=== PATIENT | male | born 1955 | race Caucasian/White ===

== ENCOUNTER → 2018-03-19 14:32 | Outpatient (CLI) | payer MEDICARE, SELFPAY ==
[2018-03-19 14:37] LABS: Microscopic, Urine URINE MICROSCOPIC (MICROSCOPIC)
[2018-03-19 15:06] LABS: Appearance,Urine CLEAR (Clear); Bilirubin,Urine Negative (Negative); Blood, Urine TRACE-L (Negative); Color,Urine YELLOW (Yellow); Glucose,Urine (UA) Negative (Negative); Ketones,Urine Negative (Negative); Leukocyte Esterase,Urine Negative (Negative); Nitrate,Urine Negative (Negative); Protein,Urine 1+ (Negative); Specific Gravity, Urine >= 1.030 (1.005-1.030); Urobilinogen,Urine 0.2 EU/dl (0.2)
[2018-03-19 15:11] LABS: Creatinine,Urine Random 377 mg/dL (20-320); Total Protein,Urine Random 164.2 mg/dL (0.0-11.9)
[2018-03-19 15:13] LABS: Basophils % 0.2 % (0.1-2.0); Hematocrit 44.4 % (42.0-52.0); Hemoglobin 13.7 g/dL (14.1-18.0); Lymphocytes # 0.6 K/mm3 (0.7-4.5); Lymphocytes % 14.8 K/mm3 (10-50); Mean Corpuscular HGB Conc 30.9 g/dL (31.8-35.4); Mean Corpuscular Hemoglobin 24.9 pg (27.0-31.2); Mean Corpuscular Volume 80.7 fl (80-94); Mean Platelet Volume 6.4 fl (7.4-10.4); Monocytes # 0.3 K/mm3 (0.1-1.0); Neutrophils % 75.9 % (37.0-80.0); Platelet Count 187 K/mm3 (142-424); Red Cell Distribution Width 17.6 % (11.5-17.5)
[2018-03-19 15:37] LABS: Bacteria,Urine 1+ /lpf; WBC,Urine Occasional #/hpf (0-3)
[2018-03-19 15:38] LABS: Mucus,Urine 3+ /lpf
[2018-03-19 15:45] LABS: Albumin Level 3.2 gm/dL (3.4-5.0); Anion Gap 11.5 mEq/L (5-15); Blood Urea Nitrogen 24 mg/dL (7-18); Calcium 8.5 mg/dL (8.5-10.1); Carbon Dioxide 26 mmol/L (21.0-32.0); Chloride 103 mmol/L (98-107); Creatinine,Serum 2.06 mg/dL (0.70-1.30); Estimated Glomerular Filt Rate 33 ml/min (>60); GFR (African American) 40 ML/MIN (>60); Glucose 94 mg/dL (74-106); Phosphorous 3.7 mg/dL (2.4-4.9); Potassium 3.5 mmoL/L (3.5-5.1); Sodium 137 mmol/L (136-145); Uric Acid 6.4 mg/dL (2.6-7.2)
[2018-03-21 18:03] LABS: Vitamin D 25 Hydroxy 31.4 ng/mL (30.0-100.0)
[2018-03-22 17:55] LABS: Calcium, Ionized 4.9 mg/dL (4.5-5.6); Parathyroid Hormone Intact 68 pg/mL (15-65)
== END ==
PROVIDERS: Visit Provider Internal Medicine Nephrology
DX: N18.3 Chronic kidney disease, stage 3 (moderate) (principal)
CPT/HCPCS: 36415; 80069; 81001; 82330; 82570; 82652; 83970; 84155; 84550; 85025

== ENCOUNTER → 2018-03-26 13:03 | Outpatient (POV) | payer MEDICARE, SELFPAY | PROVIDERS: Visit Provider Internal Medicine Nephrology | DX: Z00.00 Encounter for general adult medical examination without abnormal findings (principal) ==

== ENCOUNTER → 2020-02-14 10:25 | Outpatient (CLI) | payer MEDICARE, SELFPAY ==
[2020-02-15 15:07] LABS: Covid-19 Nasal PCR Sendout Lex Not Detected
== END ==
PROVIDERS: PCP Nurse Practitioner Family; Visit Provider Internal Medicine
DX: Z03.818 Encounter for observation for suspected exposure to other biological agents ruled out (principal); K50.90 Crohn's disease, unspecified, without complications
CPT/HCPCS: U0004

== ENCOUNTER 2021-01-21 16:49 | Emergency (ER) | payer MEDICARE, SELFPAY ==
--- NOTE | 2021-01-21 16:50 | PC.NURSE ---
SHOCKED PATIENT AT 200J PER DR. STONE AT VERBAL ORDER AT BEDSIDE. MONITOR SHOWING VTACH. CRP IMMEDIATELY RESUMED
--- NOTE | 2021-01-21 16:50 | PC.NURSE ---
PULSE CHECKS AT: 1624, 1629, 1631, 1633, 1639, 1641 NO PULSE FOUND IN ANY PULSE CHECK
[2021-01-21 17:18] VITALS: BMI 20.3
--- NOTE | 2021-01-21 17:30 | PC.NURSE ---
CAROLINA SHER RELEASED BODY FOR ENTRY LEVEL [employer]IVIL [employer]. CAROLINA FROM STATED THE BODY WILL BE IN DEFERRAL.
--- NOTE | 2021-01-21 17:38 | PC.NURSE ---
Calling [facility] Coroner at this time
--- NOTE | 2021-01-21 17:40 | PC.NURSE ---
Ruben Snyder, [employer] In[employer] en route
--- NOTE | 2021-01-21 17:59 | PC.NURSE ---
FAMILY STILL REMAINS IN ED TRIAGE AREA WAITING FOR OTHER FAMILY TO ARRIVE
--- NOTE | 2021-01-21 18:03 | [facility].EDGENADL ---
ED Disposition Clinical Impression: Cardiopulmonary arrest, Chronic kidney disease, stage IV (severe), Colostomy in place Disposition: Condition on Discharge: Critical Referrals: Provider,Referral, MD [Primary Care Provider] - Time of Disposition: 18:32 - Critical Care Critical Care Time: Yes Attestation: On 01/21/21, the high probability of a clinically significant, sudden or life threatening deterioration of the following system(s) required my full and direct attention, intervention and personal management. The time I documented below is in addition to time spent performing reported procedures but includes the following listed in this critical care notation. Total Critical Care Time: 40 Vital system(s) involved:: Circulatory Failure, Central Nervous System, Metabolic Failure, Respiratory Failure, Shock (Hemorrhage) My critical care processes included: Assessment & monitoring of V/S, Initial and Re-exams, Data Review/Interpretation, Medication Orders and management, Documentation Medical Decision Making - Medical Records Medical records reviewed: Yes: I reviewed the patient's medical records. - Kd Inquiry Pt receiving controlled substance: No Vital Signs: 01/21/21 20:32 Temperature 0 F L Pulse Rate 0 L Respiratory Rate 0 L Blood Pressure 000/00 L Oxygen Delivery Method Ambu-Bag Orders (Tests/Meds): ED MEDICATIONS Discontinued Medications Generic Name Dose Route Start Last Admin Trade Name Freq PRN Reason Stop Dose Admin Epinephrine HCl 1 mg 01/21/21 17:42 01/21/21 17:52 Epinephrine 0.1 Mg/Ml 10ml Syringe (Crash Cart) IV 01/21/21 17:43 1 mg ONCE ONE Administration Epinephrine HCl 1 mg 01/21/21 17:43 01/21/21 17:53 Epinephrine 0.1 Mg/Ml 10ml Syringe (Crash Cart) IV 01/21/21 17:44 1 mg ONCE ONE Administration Epinephrine HCl 1 mg 01/21/21 17:44 01/21/21 17:54 Epinephrine 0.1 Mg/Ml 10ml Syringe (Crash Cart) IV 01/21/21 17:45 1 mg ONCE ONE Administration Epinephrine HCl 1 mg 01/21/21 17:45 01/21/21 17:55 Epinephrine 0.1 Mg/Ml 10ml Syringe (Crash Cart) IV 01/21/21 17:46 1 mg ONCE ONE Administration Epinephrine HCl 1 mg 01/21/21 17:45 01/21/21 17:57 Epinephrine 0.1 Mg/Ml 10ml Syringe (Crash Cart) IV 01/21/21 17:46 1 mg ONCE ONE Administration Calcium Chloride 2 gm/ Sodium 270 mls @ 67.5 mls/hr 01/21/21 17:46 01/21/21 17:57 Chloride IV 01/21/21 17:47 67.5 mls/hr ONCE ONE Administration Sodium Bicarbonate 50 meq 01/21/21 17:46 01/21/21 17:58 Sodium Bicarb 8.4% 50ml Syringe (Crash Cart) IV 01/21/21 17:47 50 meq ONCE ONE Administration Medical Decision Narrative: In summary this is a 65-year-old male presenting to the emergency department by EMS in full cardiopulmonary arrest. Patient's downtime at 20 minutes on arrival. Has not received any medications. Chest compressions and bag valve mask ventilation ongoing. Patient taken to a critical room and moved onto the [facility]. Pacer pads on. IV access established in the left upper extremity. IO drilled in the right tibia. Initial rhythm check showed asystole. Chest compressions were resumed. Patient given 1 mg epinephrine. Continued CPR. Finger stick blood glucose 170mg/dL. Patient given 2 g calcium gluconate. Next rhythm check continue to show asystole. Patient given 1milligram epinephrine. Patient continued to have large-volume emesis, blackish in color. Greater than 1000 cc. Patient intubated endotracheally. Visualized with video laryngoscopy. 7.5 ET tube placed at the teeth. Positive breath sounds. End-tidal CO2 color change. ACLS continued. Patient received 4 additional rounds of epinephrine. One rhythm check showed possible V. fib. Patient defibrillated at 200 J. Next rhythm check showed asystole. Low likelihood of meaningful recovery after 42 minutes of ACLS with no ROSC. No initial bystander CPR. No epinephrine given until 20 minutes in. Initi
--- NOTE | 2021-01-21 18:14 | PC.NURSE ---
Ruben Snyder in ED at this time.
--- NOTE | 2021-01-21 18:24 | PC.NURSE ---
Ruben Snyder speaking with family.
--- NOTE | 2021-01-21 18:47 | PC.NURSE ---
FAMILY AT BEDSIDE
[2021-01-21 20:32] VITALS: BP 000/00; PULSE 0; RESP 0; TEMP -17.7; TEMP 0; O2SAT 0
[2021-02-05 11:57] LABS: POC Glucose,Bedside 95 (70-110)
== END 2021-01-21 20:37 | disposition expired ==
PROVIDERS: Emergency Provider Emergency Medicine
DX: I46.9 Cardiac arrest, cause unspecified (principal); N18.4 Chronic kidney disease, stage 4 (severe); Z93.3 Colostomy status
CPT/HCPCS: 31500; 82962; 96374; 96375; 96376; 99281